=== PATIENT | female | born 1970 | race Caucasian/White ===

== ENCOUNTER 2018-11-15 16:12 | Emergency (ER) | payer OTHER ==
[~2018-11-15] VITALS: Ht 157.5 cm; Wt 86.0 kg
[2018-11-15 16:16] VITALS: Ht 157.5 cm; Wt 86.0 kg
[2018-11-15] MEDS ORDERED: DIPHENHYDRAMINE 50 MG INJ IV STA (16:20)
[2018-11-15] MEDS ORDERED: ALBUTEROL 0.5% (NEB) 2.5 MG/0.5 ML AMP INH STA (16:20)
[2018-11-15] MEDS ORDERED: EPINEPHrine 1 MG INJ IM STA ×2 (16:20→16:28)
[2018-11-15] MEDS ORDERED: FAMOTIDINE 20 MG INJ IV STA (16:20)
[2018-11-15] MEDS ORDERED: METHYLPREDNISOLONE 125 MG INJ IV STA (16:20)
[2018-11-15] MEDS ORDERED: IPRATROPIUM (NEB) 0.5 MG/2.5 ML AMP INH STA (16:20)
[2018-11-15] MEDS ORDERED: SOD CHLORIDE 0.9% 1,000 ML IV STA (16:21)
[2018-11-15] MEDS ORDERED: LORAZEPAM 2 MG INJ IV ONE (16:30)
[2018-11-15] MEDS ORDERED: BEN50 PO (18:55)
[2018-11-15] MEDS ORDERED: EPIN0.3P4 INJ (18:55)
[2018-11-15 19:00] VITALS: BP 114/63; PULSE 94; RESP 17
--- NOTE | 2018-11-28 14:34 | ERD ---
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 30 minutes prior to arrival the patient ate shrimp. She suddenly developed a sudden onset of swelling around her eyes lips and tongue. She complained of difficulty breathing. Her family immediately brought her to the emergency department for further evaluation. The patient did not take any medications prior to arrival. ROS All systems reviewed and are negative except as per history of present illness. Medications Home Meds Active Scripts Diphenhydramine Hcl* (Benadryl*) 50 Mg Cap, 50 MG PO Q6H PRN for ITCHING/RASH, #30 CAP Prov:CAMACHO ALATORRE MD 11/15/18 Epinephrine (Epipen 2-Henrry) 0.3 Mg/0.3 Ml Pen.injctr, 1 EA INJ ONCE PRN for ALLERGIC REACTION, #1 EA Prov:CAMACHO ALATORRE MD 11/15/18 Allergies Allergies: Coded Allergies: shrimp (Verified Allergy, Unknown, 11/15/18) PMhx/Soc Medical and Surgical Hx: pt denies Medical Hx, pt denies Surgical Hx Hx Alcohol Use: No Hx Substance Use: No Hx Tobacco Use: No Smoking Status: Never smoker Physical Exam Physical Exam Constitutional:Well-developed. Well-nourished. HEENT:Normocephalic. Atraumatic.Pupils were equal round reactive to light. Angioedema of the upper and lower lip. Macroglossia . periorbital swelling and erythremia. Neck: No nuchal rigidity. No lymphadenopathy. No posterior cervical spine tenderness or step-offs. Respiratory: Not using accessory muscles of respiration.Lungs were clear to auscultation bilaterally. No rhonchi. No rales. No wheezing. No stridor Cardiovascular: Regular rate regular rhythm.No murmurs. No rubs were appreciated .S1, S2 normal. Distal pulses are palpable 2+ bilaterally. Skin: No petechia, no purpura. No lesions on the palms or the soles of the feet. No maculopapular rash. No urticaria. NEURO: Patient was alert, awake, orientated x3.No facial droop. Gait observed and normal with no ataxia.Speech had regular rate and rhythm. No focal neurological deficits. Results 24 hrs Current Medications Medications Dose Sig/Allen Start Time Status Last (Trade) Ordered Route PRN Stop Time Admin Dose Reason Admin 50 mg ONCE STAT 11/15/18 DC 11/15/18 Diphenhydrami IV 16:20 11/15/18 16:26 ne HCl 16:21 (Benadryl) Epinephrine 0.5 mg ONCE STAT 11/15/18 DC 11/15/18 IM 16:20 11/15/18 16:25 (EPINEPHrine) 16:21 Famotidine 20 mg ONCE STAT 11/15/18 DC 11/15/18 (Pepcid Iv) IV 16:20 11/15/18 16:25 16:21 125 mg ONCE STAT 11/15/18 DC 11/15/18 Methylprednis IV 16:20 11/15/18 16:26 olone Sodium 16:21 Succinate (Solu-Medrol) Albuterol 15 mg ONCE STAT 11/15/18 DC 11/15/18 (Proventil INH 16:20 11/15/18 16:33 0.5% (Neb)) 16:21 Ipratropium 1 mg ONCE STAT 11/15/18 DC 11/15/18 Deming INH 16:20 11/15/18 16:33 (Atrovent 16:21 0.02% (Neb)) Sodium 1,000 ml @ Q1H STAT 11/15/18 DC 11/15/18 Chloride 1,000 mls/hr IV 16:21 11/15/18 16:31 17:20 Lorazepam 1 mg ONCE ONCE 11/15/18 DC 11/15/18 (Ativan) IV 16:30 11/15/18 16:26 16:31 Epinephrine 0.5 mg ONCE STAT 11/15/18 DC 11/15/18 IM 16:28 11/15/18 16:38 (EPINEPHrine) 16:29 Procedures/MDM This is a 48 old female presented to the emergency department severe allergic reaction with angioedema. Patient was immediately placed on a monitoring manager continuous pulse oximetry and IV access was established. The patient was given IV Benadryl Pepcid Solu-Medrol and epinephrine. She was given a continuous nebulizer treatment of albuterol over 1 hour. The patient required a further dose of epinephrine. She remained on the monitoring manager with no arrhythmias. Observation Note: Time: 4 hours Family Hx: No Hypertension Evaluation: Multiple exams showed improving symptoms and no evidence of impending airway failure as the angioedema has completely resolved. The patient now felt comfortable being discharged home. There is no signs of airway compromise . Critical Care: Time: 90 minutes Treatments/Evaluations: Close monitoring and treatment of unstable vital signs, cardiorespiratory, and neurologic status, while maintaining tight balance of fluid, respiratory, and cardiac interventions. Time does not include performing any of the above billable procedures. The patient was discharged home in fair condition. They were instructed to return to the emergency department at any time if there was any worsening of their condition. The patient stated they would follow up with their PCP in the next 24-48 hours to initiate a suitable medication regimen under the care of their PCP as well as to allow their PCP to monitor any drug reactions. The patient was discharged home with prescriptions after they gave informed consent to the new medication. They were also fully informed by myself on the adverse effects and adverse drug interactions in order to provide adequate safeguards to prevent possible adverse reactions to medications. Departure Diagnosis: Primary Impression: Angioedema Encounter type: initial encounter Qualified Codes: T78.3XXA - Angioneurotic edema, initial encounter Additional Impression: Allergic reaction Encounter type: initial encounter Qualified Codes: T78.40XA - Allergy, unspecified, initial encounter Condition: Serious Patient Instructions: Allergic Reaction, Other (General), Angioedema CAMACHO ALATORRE MD Nov 28, 2018 14:34
== END 2018-11-15 19:11 | disposition home or self-care (01) ==
LOC: E/R 16:12
DX: T78.3XXA Angioneurotic edema, initial encounter (principal); R40.2142 Coma scale, eyes open, spontaneous, at arrival to emergency department; R40.2362 Coma scale, best motor response, obeys commands, at arrival to emergency department; R40.2252 Coma scale, best verbal response, oriented, at arrival to emergency department; T78.1XXA Other adverse food reactions, not elsewhere classified, initial encounter
CPT/HCPCS: 94644; 96372; 96374; 96375; 99291; J0171; J1200; J2060; J7030